=== PATIENT | male | born 1990 | race Caucasian/White ===

== ENCOUNTER 2021-11-01 00:06 | Emergency (ER) | payer SELFPAY ==
[~2021-11-01] VITALS: Ht 180.3 cm; Wt 73.0 kg
[2021-11-01 00:14] VITALS: BP 120/73
== END 2021-11-01 05:32 | disposition left against medical advice (07) ==
LOC: ER 00:06
DX: Z53.21 Procedure and treatment not carried out due to patient leaving prior to being seen by health care provider (principal); R07.9 Chest pain, unspecified; R06.02 Shortness of breath; R53.1 Weakness; R94.31 Abnormal electrocardiogram [ECG] [EKG]
CPT/HCPCS: 93005